=== PATIENT | male | born 1995 | race Caucasian/White ===

== ENCOUNTER 2018-08-29 19:51 | Emergency (ER) | payer OTHER ==
--- NOTE | 2018-08-29 20:40 | C.PDOC ---
History Of Present Illness Patient is a 23 year old male who presents to the ED c/o nausea and acid reflux that began today after patient had 5 alcoholic cocktails last night, ending at 2am. Patient states he also woke up with poor appetite. He denies any injuries, SOB, diarrhea, fever, or chills. Time Seen by Provider: 08/29/18 20:26 Chief Complaint (Nursing): Abdominal Pain History Per: Patient History/Exam Limitations: no limitations Onset/Duration Of Symptoms: Hrs Current Symptoms Are (Timing): Still Present Associated Symptoms: Nausea. denies: Fever, Chills, Diarrhea, Other (SOB) Recent travel outside of the [place]: No Additional History Per: Patient Past Medical History Reviewed: Historical Data, Nursing Documentation, Vital Signs Vital Signs: Last Vital Signs Temp 98.2 F 08/29/18 20:01 Pulse 83 08/29/18 20:01 Resp 16 08/29/18 20:01 BP 163/91 H 08/29/18 20:01 Pulse Ox 100 08/29/18 20:01 - Medical History PMH: No Chronic Diseases Surgical History: No Surg Hx Family History: States: No Known Family Hx - Social History Hx Alcohol Use: Yes Hx Substance Use: No Review Of Systems Constitutional: Negative for: Fever, Chills Respiratory: Negative for: Shortness of Breath Gastrointestinal: Positive for: Nausea, Other (acid reflux). Negative for: Diarrhea Physical Exam - Physical Exam Appears: Non-toxic, No Acute Distress Skin: Normal Color, Warm, Dry Head: Atraumatic, Normacephalic Oral Mucosa: Moist Neck: Normal ROM, Supple Chest: Symmetrical Cardiovascular: Rhythm Regular Respiratory: Normal Breath Sounds, No Rales, No Rhonchi, No Wheezing Gastrointestinal/Abdominal: Soft, No Tenderness Neurological/Psych: Oriented x3 ED Course And Treatment O2 Sat by Pulse Oximetry: 100 (on RA) Pulse Ox Interpretation: Normal Medical Decision Making Medical Decision Making: Plan: Pepcid 20mg PO Zofran 4mg PO first Hangover never drinks alcohol benign exam Educated on home remedies Disposition Doctor Will See Patient In The: Office Counseled Patient/Family Regarding: Studies Performed, Diagnosis - Disposition Referrals: [facility] [Outside] [facility] [Outside] [place] [facility] [place] Disposition: HOME/ ROUTINE Disposition Time: 20:39 Condition: GOOD Additional Instructions: you were given Pepcid 20 mg and Zofran 4 mg by mouth Drink plenty of gatorade [place] diet (plain white rice tonight) normal diet tomorrow. Avoid alcohol excess which promotes hangovers. Forms: [facility] (Bulgarian) - Clinical Impression Clinical Impression: Hangover effect - Scribe Statement The provider has reviewed the documentation as recorded by the Carrieibned Muniz All medical record entries made by the Scribe were at my direction and personally dictated by me. I have reviewed the chart and agree that the record accurately reflects my personal performance of the history, physical exam, medical decision making, and the department course for this patient. I have also personally directed, reviewed, and agree with the discharge instructions and disposition.
[2018-08-29 21:09] VITALS: BP 138/88; PULSE 85; RESP 18; TEMP 98.1
[2018-08-29 21:24] VITALS: O2SAT 100
== END 2018-08-29 21:07 | disposition home or self-care (01) ==
LOC: C.ER 19:51
DX: F10.129 Alcohol abuse with intoxication, unspecified (principal)